=== PATIENT | female | born 1935 | race Caucasian/White ===

== ENCOUNTER 2021-06-04 22:02 | Inpatient (IN) | payer OTHER, MEDICARE, SELFPAY ==
[~2021-06-04] VITALS: Ht 139.7 cm; Wt 68.0 kg
[2021-06-04 22:10] VITALS: BP 160/67
[2021-06-04 22:53] LABS: BASOPHILS % (AUTO) 0.5 % (0.0-2.0); EOSINOPHILS # (AUTO) 0.1 K/uL (0-0.4); EOSINOPHILS % (AUTO) 1.7 % (0.0-4.0); HEMATOCRIT 38.8 % (36-48); HEMOGLOBIN 13.2 g/dL (12.0-16.0); LYMPHOCYTES # (AUTO) 1.8 K/uL (2.5-16.5); MEAN CORPUSCULAR HEMOGLOBIN 29 pg (27-31); MEAN CORPUSCULAR HGB CONC 34 g/dL (33-37); MEAN CORPUSCULAR VOLUME 85.9 fL (80-94); MONOCYTES # (AUTO) 0.5 K/uL (0.8-1.0); MONOCYTES % (AUTO) 7.9 % (1.7-9.3); NEUTROPHILS # (AUTO) 4.2 K/uL (1.8-7.7); NEUTROPHILS % (AUTO) 62.9 % (42.2-75.2); PLATELET COUNT (AUTO) 236 K/uL (140-450); RED BLOOD CELL COUNT(AUTO) 4.52 MIL/uL (4.20-5.40); RED CELL DISTRIBUTION WIDTH 14.5 % (11.6-13.7); WHITE BLOOD COUNT (AUTO) 6.7 K/uL (4.8-10.8)
[2021-06-04 23:15] LABS: ALBUMIN 3.7 g/dL (3.4-5.0); ANION GAP 12.3 (8-16); ASPARTATE AMINOTRANSFERASE 35 U/L (15-37); CARBON DIOXIDE 23.8 mmol/L (21-32); CHLORIDE 88 mmol/L (98-107); CREATININE 0.6 mg/dL (0.6-1.3); GLUCOSE 108 mg/dL (74-106); POTASSIUM 4.1 mmol/L (3.5-5.1); SODIUM SERUM 120 mmol/L (136-145); TOTAL BILIRUBIN 0.5 mg/dL (0.0-1.0); UREA NITROGEN, BLOOD 14 mg/dL (7-18)
[2021-06-05] MEDS ORDERED: ONDANSETRON 4 MG/2 ML VIAL IVP ONE (00:05)
[2021-06-05] MEDS ORDERED: NACL 0.9% 1,000 ML IV ONE ×2 (00:05→02:50)
[2021-06-05] MEDS ORDERED: PANTOPRAZOLE 40 MG INJ VIAL IVP ONE (01:15)
[2021-06-05] MEDS ORDERED: MORPHINE SULFATE 2 MG/ML SYR IVP ONE (01:15)
[2021-06-05] MEDS ORDERED: SODIUM CHLORIDE 1 GM TAB PO SCH (02:50)
[2021-06-05] MEDS ORDERED: AMLO5TAB PO (03:32)
[2021-06-05 06:21] LABS: BASOPHILS % (AUTO) 0.5 % (0.0-2.0); EOSINOPHILS # (AUTO) 0.1 K/uL (0-0.4); EOSINOPHILS % (AUTO) 1.3 % (0.0-4.0); HEMATOCRIT 38.9 % (36-48); HEMOGLOBIN 13.1 g/dL (12.0-16.0); LYMPHOCYTES # (AUTO) 1.8 K/uL (2.5-16.5); LYMPHOCYTES % (AUTO) 29.7 % (20.5-51.1); MEAN CORPUSCULAR HEMOGLOBIN 29 pg (27-31); MEAN CORPUSCULAR HGB CONC 34 g/dL (33-37); MEAN CORPUSCULAR VOLUME 86.9 fL (80-94); MONOCYTES # (AUTO) 0.5 K/uL (0.8-1.0); MONOCYTES % (AUTO) 8.2 % (1.7-9.3); NEUTROPHILS # (AUTO) 3.6 K/uL (1.8-7.7); NEUTROPHILS % (AUTO) 60.3 % (42.2-75.2); PLATELET COUNT (AUTO) 227 K/uL (140-450); RED BLOOD CELL COUNT(AUTO) 4.48 MIL/uL (4.20-5.40); RED CELL DISTRIBUTION WIDTH 14.2 % (11.6-13.7)
[2021-06-05 06:42] LABS: ANION GAP 10.5 (8-16); CARBON DIOXIDE 26.4 mmol/L (21-32); CHLORIDE 94 mmol/L (98-107); CREATININE 0.5 mg/dL (0.6-1.3); GLUCOSE 95 mg/dL (74-106); POTASSIUM 3.9 mmol/L (3.5-5.1); SODIUM SERUM 127 mmol/L (136-145); UREA NITROGEN, BLOOD 8 mg/dL (7-18)
[2021-06-05 08:00] VITALS: BP 153/53
[2021-06-05] MEDS ORDERED: HYDROcodone/APAP 7.5/325 MG 1 TAB PO PRN (08:10)
[2021-06-05] MEDS ORDERED: hydrALAZINE 20 MG/ML VIAL IVP PRN (08:10)
[2021-06-05] MEDS ORDERED: ACETAMINOPHEN 325 MG TAB PO PRN (08:10)
[2021-06-05] MEDS ORDERED: ONDANSETRON 4 MG/2 ML VIAL IM/IVP PRN (08:10)
[2021-06-05] MEDS ORDERED: guaiFENesin DM 200/20 MG-10 ML 10 ML UDC PO PRN (08:10)
[2021-06-05] MEDS ORDERED: ZOLPIDEM 5 MG TAB PO PRN (08:10)
[2021-06-05] MEDS ORDERED: POTASSIUM CHLORIDE 10 MEQ TABER PO PRN (08:10)
[2021-06-05 08:41] LABS: PROTHROMBIN TIME 9.8 secs (10.8-13.4)
[2021-06-05 08:45] LABS: CHOL/HDL RATIO 2.2 (1-4.5); FREE T4 (FREE THYROXINE) 1.18 ng/dL (0.76-1.46); MAGNESIUM 2.1 mg/dL (1.8-2.4); PHOSPHORUS 2.3 mg/dL (2.5-4.9); THYROID STIMULATING HORMONE 3.16 uIU/mL (0.34-3.74)
[2021-06-05] MEDS: PANTOPRAZOLE 40 MG TABEC PO SCH (09:23)
[2021-06-05] MEDS: amLODIPine 5 MG TAB PO SCH (09:23)
[2021-06-05] MEDS: NACL 0.9% 1,000 ML IV SCH ×2 (12:00→19:52)
[2021-06-05 16:00] VITALS: BP 162/65
[2021-06-05 21:36] LABS: ANION GAP 11.2 (8-16); CARBON DIOXIDE 22.5 mmol/L (21-32); CHLORIDE 98 mmol/L (98-107); CREATININE 0.5 mg/dL (0.6-1.3); GLUCOSE 119 mg/dL (74-106); POTASSIUM 3.7 mmol/L (3.5-5.1); SODIUM SERUM 128 mmol/L (136-145); UREA NITROGEN, BLOOD 12 mg/dL (7-18)
[2021-06-06 04:00] VITALS: BP 164/59
[2021-06-06 07:04] LABS: ANION GAP 11.5 (8-16); CARBON DIOXIDE 25.5 mmol/L (21-32); CHLORIDE 97 mmol/L (98-107); CREATININE 0.5 mg/dL (0.6-1.3); GLUCOSE 92 mg/dL (74-106); SODIUM SERUM 130 mmol/L (136-145); UREA NITROGEN, BLOOD 9 mg/dL (7-18)
[2021-06-06 07:08] LABS: BASOPHILS % (AUTO) 0.5 % (0.0-2.0); EOSINOPHILS # (AUTO) 0.1 K/uL (0-0.4); EOSINOPHILS % (AUTO) 1.5 % (0.0-4.0); HEMATOCRIT 38.4 % (36-48); HEMOGLOBIN 13.1 g/dL (12.0-16.0); LYMPHOCYTES % (AUTO) 40.8 % (20.5-51.1); MEAN CORPUSCULAR HEMOGLOBIN 29 pg (27-31); MEAN CORPUSCULAR HGB CONC 34 g/dL (33-37); MEAN CORPUSCULAR VOLUME 85.4 fL (80-94); MONOCYTES # (AUTO) 0.4 K/uL (0.8-1.0); MONOCYTES % (AUTO) 8.6 % (1.7-9.3); NEUTROPHILS # (AUTO) 2.4 K/uL (1.8-7.7); NEUTROPHILS % (AUTO) 48.6 % (42.2-75.2); PLATELET COUNT (AUTO) 238 K/uL (140-450); RED CELL DISTRIBUTION WIDTH 14.7 % (11.6-13.7)
[2021-06-06 08:00] VITALS: BP 161/71
[2021-06-06 08:07] LABS: T4 (THYROXINE) 9.1 ug/dL (4.5-12.0)
[2021-06-06] MEDS: amLODIPine 5 MG TAB PO SCH (09:04)
[2021-06-06] MEDS: PANTOPRAZOLE 40 MG TABEC PO SCH (09:04)
[2021-06-06 12:00] VITALS: BP 158/55
[2021-06-06 16:00] VITALS: BP 164/56
[2021-06-06] MEDS: DOCUSATE SODIUM 100 MG GELCAP PO PRN (17:01)
[2021-06-06] MEDS: NACL 0.9% 1,000 ML IV SCH (21:20)
[2021-06-07 04:00] VITALS: BP 179/79
[2021-06-07 07:11] LABS: ANION GAP 13.8 (8-16); CARBON DIOXIDE 22.3 mmol/L (21-32); CHLORIDE 97 mmol/L (98-107); CREATININE 0.6 mg/dL (0.6-1.3); GLUCOSE 99 mg/dL (74-106); POTASSIUM 4.1 mmol/L (3.5-5.1); SODIUM SERUM 129 mmol/L (136-145); UREA NITROGEN, BLOOD 12 mg/dL (7-18)
[2021-06-07 07:20] LABS: BASOPHILS % (AUTO) 0.4 % (0.0-2.0); EOSINOPHILS # (AUTO) 0.1 K/uL (0-0.4); EOSINOPHILS % (AUTO) 1.9 % (0.0-4.0); HEMATOCRIT 36.5 % (36-48); HEMOGLOBIN 12.3 g/dL (12.0-16.0); LYMPHOCYTES # (AUTO) 1.7 K/uL (2.5-16.5); LYMPHOCYTES % (AUTO) 33.3 % (20.5-51.1); MEAN CORPUSCULAR HEMOGLOBIN 29 pg (27-31); MEAN CORPUSCULAR HGB CONC 34 g/dL (33-37); MEAN CORPUSCULAR VOLUME 85.5 fL (80-94); MONOCYTES # (AUTO) 0.5 K/uL (0.8-1.0); MONOCYTES % (AUTO) 9.7 % (1.7-9.3); NEUTROPHILS # (AUTO) 2.7 K/uL (1.8-7.7); NEUTROPHILS % (AUTO) 54.7 % (42.2-75.2); PLATELET COUNT (AUTO) 208 K/uL (140-450); RED BLOOD CELL COUNT(AUTO) 4.27 MIL/uL (4.20-5.40); RED CELL DISTRIBUTION WIDTH 14.4 % (11.6-13.7)
[2021-06-07] MEDS: PANTOPRAZOLE 40 MG TABEC PO SCH (08:12)
[2021-06-07] MEDS: amLODIPine 5 MG TAB PO SCH (08:13)
[2021-06-07] MEDS: DOCUSATE SODIUM 100 MG GELCAP PO PRN (09:09)
[2021-06-07 13:00] VITALS: BP 108/60
[2021-06-07 13:06] VITALS: BP 156/62
[2021-06-07] MEDS ORDERED: bisacodyL 10 MG SUPP RC PRN (15:15)
[2021-06-07 20:00] VITALS: BP 185/70
[2021-06-07] MEDS ORDERED: amLODIPine 5 MG TAB PO SCH (20:15)
[2021-06-07] MEDS: FUROSEMIDE 20 MG/2 ML VIAL IVP SCH (21:00)
[2021-06-07] MEDS ORDERED: METOPROLOL 25 MG TAB ONE (21:13)
[2021-06-08 04:00] VITALS: BP 144/69
[2021-06-08 06:28] LABS: BASOPHILS % (AUTO) 0.3 % (0.0-2.0); EOSINOPHILS # (AUTO) 0.1 K/uL (0-0.4); EOSINOPHILS % (AUTO) 0.9 % (0.0-4.0); HEMATOCRIT 37.5 % (36-48); HEMOGLOBIN 12.8 g/dL (12.0-16.0); LYMPHOCYTES # (AUTO) 1.8 K/uL (2.5-16.5); LYMPHOCYTES % (AUTO) 22.4 % (20.5-51.1); MEAN CORPUSCULAR HEMOGLOBIN 29 pg (27-31); MEAN CORPUSCULAR HGB CONC 34 g/dL (33-37); MONOCYTES # (AUTO) 0.6 K/uL (0.8-1.0); MONOCYTES % (AUTO) 7.8 % (1.7-9.3); NEUTROPHILS # (AUTO) 5.4 K/uL (1.8-7.7); NEUTROPHILS % (AUTO) 68.6 % (42.2-75.2); PLATELET COUNT (AUTO) 240 K/uL (140-450); RED BLOOD CELL COUNT(AUTO) 4.41 MIL/uL (4.20-5.40); RED CELL DISTRIBUTION WIDTH 14.4 % (11.6-13.7); WHITE BLOOD COUNT (AUTO) 7.9 K/uL (4.8-10.8)
[2021-06-08 06:56] LABS: CARBON DIOXIDE 25.8 mmol/L (21-32); CHLORIDE 92 mmol/L (98-107); CREATININE 0.6 mg/dL (0.6-1.3); GLUCOSE 100 mg/dL (74-106); POTASSIUM 3.8 mmol/L (3.5-5.1); SODIUM SERUM 126 mmol/L (136-145); UREA NITROGEN, BLOOD 11 mg/dL (7-18)
[2021-06-08] MEDS: PANTOPRAZOLE 40 MG TABEC PO SCH (08:23)
[2021-06-08] MEDS: FUROSEMIDE 20 MG/2 ML VIAL IVP SCH (09:00)
[2021-06-08] MEDS ORDERED: amLODIPine 5 MG TAB PO SCH (09:00)
[2021-06-08] MEDS ORDERED: METOPROLOL 25 MG TAB PO SCH (09:00)
[2021-06-08] MEDS ORDERED: PANT40EC56 PO (10:39)
[2021-06-08] MEDS ORDERED: METO25TA PO (10:39)
[2021-06-08 12:00] VITALS: BP 159/60
[2021-06-08 15:26] VITALS: BP 162/67
[2021-06-08 15:37] VITALS: BP 162/67
== END 2021-06-08 17:30 | disposition home or self-care (01) | DRG 426 ==
LOC: MED 22:02 → MTU 06-05 02:52
PROVIDERS: ADMIT Family Medicine; ATTEND Family Medicine
DX: E87.1 Hypo-osmolality and hyponatremia (principal); G93.41 Metabolic encephalopathy; K57.90 Diverticulosis of intestine, part unspecified, without perforation or abscess without bleeding; E83.51 Hypocalcemia; I10 Essential (primary) hypertension; Z20.822 Contact with and (suspected) exposure to COVID-19; K80.20 Calculus of gallbladder without cholecystitis without obstruction; Z88.5 Allergy status to narcotic agent; Z79.899 Other long term (current) drug therapy
CPT/HCPCS: 36415; 71045; 71250; 76705; 80048; 80053; 82150; 83036; 83605; 83690; 83735; 83880; 84100; 84436; 84439; 84443; 84479; 84484; 85025; 85610; 85730; 87081; 93005; 99285; C9113; J0360; J1940; J2405; Q0092

== ENCOUNTER 2021-10-10 16:30 | Emergency (ER) | payer MEDICARE, OTHER ==
[~2021-10-10] VITALS: Ht 142.2 cm; Wt 80.7 kg
[~2021-10-10 16:30] MED LIST: AMLO5TAB PO; METO25TA PO; PANT40EC56 PO
[2021-10-10 16:35] VITALS: BP 174/73
--- NOTE | 2021-10-10 17:09 | NUR ---
85 y/o female BIB mother for c/o left sharp 8/10 popliteal pain x 15 days. States she has been feeling more fatigued lately as well. Pt also reports genital pain that radiated from her genitals to her left buttock. Denies and recent falls or traumas, LOC. Denies N/V/D at this time. Pt ambulates well with FWW. Bilat legs appear enlarged, pt states that is her baseline. edema noted to bilat legs. PmHx: HTN, Low sodium. Allergies: Denies Home meds: gapentin 300mg, amlodipine 5mg
--- NOTE | 2021-10-10 17:50 | NUR ---
DR ALICIA AT BEDSIDE EXAMINING PT
[2021-10-10] MEDS ORDERED: KETOROLAC 15 MG/ML VIAL IVP ONE (18:05)
[2021-10-10] MEDS ORDERED: KETOROLAC 15 MG/ML VIAL IM ONE (18:05)
[2021-10-10] MEDS ORDERED: ACETAMINOPHEN EXTRA STRENGTH 500 MG TAB PO ONE (18:05)
[2021-10-10] MEDS ORDERED: LIDOCAINE 5% 1 EA PATCH TP SCH (18:05)
--- NOTE | 2021-10-10 19:34 | NUR ---
Pt report given to ANASTASIA DUNCAN. Transfer of care at this time.
[2021-10-10] MEDS ORDERED: ACET-2619 PO (19:36)
[2021-10-10] MEDS ORDERED: IBUP-1842 PO (19:36)
[2021-10-10] MEDS ORDERED: LID5T TP (19:36)
--- NOTE | 2021-10-10 19:50 | NUR ---
Patient discharged with v/s stable. Written and verbal after care instructions given and explained. Patient alert, oriented and verbalized understanding of instructions. Ambulatory with steady gait. All questions addressed prior to discharge. ID band removed. Patient advised to follow up with PMD. Rx of tylenol, motrin, & lidocaine patch given. Patient educated on indication of medication including possible reaction and side effects. Opportunity to ask questions provided and answered.
== END 2021-10-10 19:50 | disposition home or self-care (01) ==
LOC: MED 16:30
DX: S32.019A Unspecified fracture of first lumbar vertebra, initial encounter for closed fracture (principal); M47.896 Other spondylosis, lumbar region; M25.562 Pain in left knee; I10 Essential (primary) hypertension; Z88.5 Allergy status to narcotic agent; Z79.899 Other long term (current) drug therapy; X58.XXXA Exposure to other specified factors, initial encounter; Y93.89 Activity, other specified; Y92.89 Other specified places as the place of occurrence of the external cause; Y99.8 Other external cause status
CPT/HCPCS: 72110; 81002; 93971; 96372; 99284; J1885; Q0092